=== PATIENT | male | born 1980 | race Caucasian/White ===

== ENCOUNTER 2021-09-04 11:03 | Emergency (ER) | payer OTHER ==
[~2021-09-04] VITALS: Ht 190.5 cm; Wt 124.7 kg
[2021-09-04] MEDS ORDERED: CYCLOBENZAPRINE10 MG PO (13:58)
== END 2021-09-04 14:38 | disposition home or self-care (01) ==
LOC: FER 11:03
DX: M54.50 Low back pain, unspecified (principal); M54.6 Pain in thoracic spine; Z88.0 Allergy status to penicillin
CPT/HCPCS: 72072; 72100; J1885